=== PATIENT | female | born 2000 | race Caucasian/White ===

== ENCOUNTER 2023-12-03 13:45 | Outpatient (CLI) | payer OTHER, SELFPAY | END 2023-12-03 13:46 | disposition home or self-care (01) | PROVIDERS: PCP Internal Medicine; Visit Provider Internal Medicine | DX: R10.10 Upper abdominal pain, unspecified (principal) | CPT/HCPCS: 80048; 83540; 83550; 84443 ==

== ENCOUNTER 2023-12-11 08:15 | Outpatient (CLI) | payer OTHER, SELFPAY ==
--- NOTE | 2023-12-11 08:15 | US_ITS ---
Patient: MARGARETTE THOMASON Facility:?[facility] Patient ID:?[id number] Site Patient ID:?[id number]. Site :?2001 Study:?US-Abdomen RUQ-12/11/2023 8:39:33 AM Ordering Physician:ELEANOR SANCHEZ Final Report: INDICATION: Abdominal pain COMPARISON: none TECHNIQUE: Real time mccann scale imaging and color Doppler analysis was performed of the right upper quadrant. FINDINGS: Incidental hyperechoic lesion within the right hepatic lobe measuring 1.3 x 1.4 x 1.3 cm consistent with benign hemangioma. Liver is otherwise unremarkable. The liver measures 14.6 cm. There is a normal appearance of the hepatic IVC and proximal abdominal aorta. There is no evidence of ascites. The gallbladder is of normal size and there is no evidence of intraluminal stones or sludge. The gallbladder wall measures 1.4 mm in thickness. The common bile duct is of normal size and measures 4.1 mm in diameter at the level of the erica hepatis. The pancreas appears normal. There is no evidence of a stone or hydronephrosis within the right kidney. The right kidney measures 11.3 cm in length. IMPRESSION: Normal right upper quadrant ultrasound. Incidental 1.4 cm intrahepatic hemangioma. Dictated by Scott Henriquez MD @ 12/11/2023 10:51:58 AM Signed by:?Scott Henriquez MD @12/11/2023 10:51:58 AM (Electronic Signature)
== END 2023-12-11 08:16 | disposition home or self-care (01) ==
LOC: US 08:16
PROVIDERS: PCP Internal Medicine; Visit Provider Internal Medicine
DX: R10.9 Unspecified abdominal pain (principal); D18.09 Hemangioma of other sites
CPT/HCPCS: 76705

== ENCOUNTER 2023-12-25 08:08 | Outpatient (CLI) | payer OTHER, SELFPAY ==
--- NOTE | 2023-12-25 08:15 | NM_ITS ---
Patient: MARGARETTE THOMASON Facility:?[facility] Patient ID:?[id number] Site Patient ID:?[id number]. Site :?2001 Study:?NM-Gallbladder Procedure HIDA w/ GBEF-12/25/2023 10:47:00 AM Ordering Physician:?MYLENE SANCHEZ Final Report: INDICATION: Abdominal pain. TECHNIQUE: 5.3 mCi Tc-99m labeled Mebrofenin. 1.75 mcg Kinevac IV. FINDINGS: Normal uptake and excretion of tracer by the liver. Activity is identified promptly within the gallbladder and the extrahepatic biliary tree within 5 minutes after injection. The gallbladder continues to fill up to 45 minutes. After the administration of CCK, the gallbladder ejection fraction is calculated at 94 percent which is within normal limits. (the patient`s typical symptoms were not reproduced with Kinevac administration). IMPRESSION : 1. Normal HIDA scan. 2. Normal gallbladder ejection fraction of 94 percent. Dictated by Misha Urena MD @ 12/25/2023 10:58:33 AM Signed by:?Misha Urena MD @12/25/2023 10:58:33 AM (Electronic Signature)
== END 2023-12-25 08:09 | disposition home or self-care (01) ==
LOC: NM 08:09
PROVIDERS: PCP Internal Medicine; Visit Provider Internal Medicine
DX: R10.9 Unspecified abdominal pain (principal)
CPT/HCPCS: 78227; A9537; J2805